=== PATIENT | female | born 1985 | race Caucasian/White ===

== ENCOUNTER 2017-10-09 07:14 | Emergency (ER) | payer OTHER ==
[~2017-10-09] VITALS: Ht 154.9 cm; Wt 56.9 kg
[2017-10-09 07:36] LABS: APPEARANCE SL.HAZY ((CLEAR)); BILIRUBIN NEGATIVE; BLOOD NEGATIVE; COLOR YELLOW ((YELLOW)); GLUCOSE (STRIP) NEGATIVE; KETONES NEGATIVE; LEUKOCYTES TRACE; NITRITE NEGATIVE; PROTEIN (STRIP) NEGATIVE; SPECIFIC GRAVITY 1.008 (1.000-1.030); UROBILINOGEN 0.2 MG/DL (0.2-1.0)
[2017-10-09 07:38] LABS: BACTERIA RARE /HPF; EPITHELIAL CELLS RARE /HPF; MUCUS TRACE /LPF; RED BLOOD CELLS 0-5 /HPF (0-5); WHITE BLOOD CELLS 0-5 /HPF (0-5)
[2017-10-09 08:12] LABS: HEMATOCRIT 35.8 % (36.0-46.0); HEMOGLOBIN 12.8 G/DL (11.9-15.5); MCH 32.2 PG (29.0-34.0); MCHC 35.8 G/DL (30.0-36.0); MCV 90.2 FL (83-99); PLATELET COUNT 244 K/uL (156-360); RBC DIS.WIDTH-SD 39.9 % (39-53); RED BLOOD COUNT 3.97 M/uL (3.80-5.20); WHITE BLOOD COUNT 4.8 K/uL (4.1-10.2)
[2017-10-09 08:22] LABS: ALBUMIN 4.3 g/dL (3.2-4.8); CHLORIDE 107 mEq/L (99-109); POTASSIUM 3.3 mEq/L (3.7-5.4); SODIUM 140 mEq/L (136-147)
[2017-10-09 08:25] LABS: GLUCOSE 92 mg/dL (70-99); TOTAL PROTEIN 6.9 g/dL (6.4-8.3)
[2017-10-09 08:26] LABS: TOTAL BILIRUBIN 0.6 mg/dL (0.0-1.0)
[2017-10-09 08:28] LABS: ALKALINE PHOSPHATASE 45 IU/L (3-129); CREATININE 0.8 mg/dL (0.6-1.3); GFR ESTIMATE (CALCULATED) > 59 mL/min/
[2017-10-09 08:29] LABS: UREA NITROGEN (BUN) 12 mg/dL (9-23)
[2017-10-09 08:30] LABS: AST (GOT) 14 IU/L (2-34)
[2017-10-09 08:31] LABS: ALT (GPT) 8 IU/L (3-49)
[2017-10-09 08:32] LABS: LIPASE 31 U/L (1.0-51.0)
[2017-10-09 08:38] LABS: QUANTITATIVE HCG < 4.0 MIU/ML
[2017-10-09] MEDS ORDERED: BENTYL20 MG PO (09:21)
[2017-10-09 10:00] VITALS: BP 111/78
== END 2017-10-09 10:11 | disposition home or self-care (01) ==
LOC: EME 07:14
PROVIDERS: Nurse Practitioner Family
DX: R10.33 Periumbilical pain (principal); E87.6 Hypokalemia; F17.200 Nicotine dependence, unspecified, uncomplicated; K50.90 Crohn's disease, unspecified, without complications
CPT/HCPCS: 74177; 80053; 81003; 83690; 84702; 85027; 99281; 99285; J7030